=== PATIENT | male | born 1995 | race Hispanic/Latino ===

== ENCOUNTER → 2024-09-30 | Outpatient (CLI) | payer BC ==
--- NOTE | 2024-09-30 21:53 | HMCIMG ---
EXAM: MR Cervical Spine Without Intravenous Contrast. CLINICAL HISTORY: Cervicalgia. TECHNIQUE: Magnetic resonance images of the cervical spine in multiple planes. CONTRAST: None. COMPARISON: None. FINDINGS: The imaged posterior fossa is unremarkable. The craniocervical junction is intact. No acute fracture. Reversal of the normal cervical lordosis, possibly paraspinal muscle spasm. Multilevel spondylosis is evident by marginal osteophytes. Multilevel disc desiccation noted. Normal vertebral body and disc heights. Normal marrow signal of the vertebrae. No abnormal signal involves the cord. No extra-axial masses. The surrounding soft tissues are unremarkable. Level by level disease is present as follows: C1-C2: No osteoarthritis. C2-C3: No disc bulge or herniation. No neural foraminal, lateral recess or spinal canal stenosis. C3-C4: 2 mm left predominant disc osteophyte complex bulge causing mild indentation on the anterior thecal sac, mild right foraminal narrowing, and moderate left foraminal narrowing. No lateral recess stenosis. C4-C5: 1 mm disc osteophyte complex bulge causing mild indentation on the anterior thecal sac and mild bilateral foraminal narrowing. No lateral recess stenosis. C5-C6: 3 mm disc osteophyte complex bulge causing mild canal narrowing with indentation on the anterior cord, moderate bilateral foraminal and lateral recess narrowing. C6-C7: No disc bulge or herniation. No neural foraminal, lateral recess or spinal canal stenosis. C7-T1: No disc bulge or herniation. No neural foraminal, lateral recess or spinal canal stenosis. IMPRESSION: Reversal of the normal cervical lordosis, possibly paraspinal muscle spasm. Mild multilevel spondylosis. Mild indentation on the anterior thecal sac, mild right foraminal narrowing, and moderate left foraminal narrowing at the C3-C4 level. Mild indentation on the anterior thecal sac and mild bilateral foraminal narrowing at the C4-C5 level. Mild canal narrowing with indentation on the anterior cord, moderate bilateral foraminal and lateral recess narrowing at the C5-C6 level. /[place]
== END | disposition home or self-care (01) ==
LOC: RAH 15:21
PROVIDERS: ATTEND Internal Medicine
DX: M47.812 Spondylosis without myelopathy or radiculopathy, cervical region (principal); M50.322 Other cervical disc degeneration at C5-C6 level; M50.321 Other cervical disc degeneration at C4-C5 level; M50.31 Other cervical disc degeneration, high cervical region; M48.02 Spinal stenosis, cervical region; M25.78 Osteophyte, vertebrae
CPT/HCPCS: 72141